=== PATIENT | female | born 1990 | race African-American/Black ===

== ENCOUNTER 2017-10-07 10:36 | Inpatient (IN) ==
[2017-10-07 11:40] LABS: Apearance,Urine CLEAR (Clear); Bilirubin,Urine Negative (Negative); Blood, Urine Moderate mg/dL (Negative); Glucose,Urine (UA) Negative (Negative); Ketones,Urine Negative (Negative); Mucus,Urine Occasional /LPF (Occasional); Nitrite,Urine Negative (Negative); Protein,Urine 100 MG/DL; RBC,Urine 100 /HPF (0-4); Squamous Epithelial Cell,Urine Occasional /HPF (0-10); Urine Color Yellow (Yellow); Urine Specific Gravity 1.018 (1.001-1.035); Urine Urobilinogen < 2.0 EU/DL (0.2-1.0); WBC,Urine 1 /HPF (0-6)
[2017-10-07] MEDS ORDERED: ONDANSETRON 4 MG/2 ML VIAL IV PRN ×2 (11:42→12:57)
[2017-10-07] MEDS ORDERED: FAMOTIDINE 20 MG/2 ML VIAL IV ONE (11:43)
[2017-10-07] MEDS ORDERED: MAGNESIUM SULF RIDER 100 ML IV ONE (11:44)
[2017-10-07] MEDS: LACTATED RINGERS 1,000 ML IV SCH ×2 (11:45→21:18)
[2017-10-07] MEDS ORDERED: CITRIC ACID/SODIUM CITRATE 30 ML UDCUP ONE (11:45)
[2017-10-07 11:59] LABS: Basophils # 0.1 10*3/uL (0.0-0.2); Basophils % 0.5 % (0.0-0.8); Eosinophils # 0.5 10*3/uL (0.0-0.87); Eosinophils % 4.7 % (0.00-10.9); Hematocrit 35.4 VOL% (35.7-47.0); Hemoglobin 11.8 GM/DL (12.0-16.0); Immature Granulocytes % 0.6 %; Immature Granulocytes Absolute 0.06 #; Lymphocytes # 3.4 10*3/uL (1.4-4.0); Lymphocytes % 34.1 % (21.3-54.2); Mean Corpuscular HGB Conc 33.3 GM/DL (32-36); Mean Corpuscular Hemoglobin 32 PG (27-34); Mean Corpuscular Volume 96.5 FL (87-102); Mean Platelet Volume 10.4 FL (9.6-12.0); Monocytes # 1.1 10*3/uL (0.11-0.8); Monocytes % 10.9 % (1.7-12.7); Neutrophils # 4.9 10*3/uL (1.4-7.4); Neutrophils % 49.2 % (38.7-73.9); Platelet Count 194 T/CUMM (130-400); Red Blood Count 3.67 MC/CUMM (3.8-5.5); Red Cell Distribution Width 13.8 % (9.3-17.3); White Blood Count 9.9 T/CUMM (4-12)
[2017-10-07] MEDS ORDERED: OXYTOCIN/LR 20 UNIT/1,000 ML BAG IV ONE ×3 (12:04→16:51)
[2017-10-07] MEDS ORDERED: SODIUM CHLORIDE 0.9% 100 ML IV ONE (12:05)
[2017-10-07 12:31] LABS: Barbiturates Screen,Urine Negative (Negative); Benzodiazepines Screen,Urine Negative (Negative); Cannabinoid Screen,Urine Negative (Negative); Opiate Screen,Urine Negative (Negative); Phencyclidine Screen,Urine Negative (Negative)
[2017-10-07 12:39] LABS: Alanine Aminotransferase 14 U/L (13-56); Albumin 2.9 G/DL (3.4-5.0); Alkaline Phosphatase 119 U/L (45-117); Aspartate Amino Transferase 18 U/L (0-37); Bilirubin,Total < 0.39 MG/DL (0.2-1.0); Blood Urea Nitrogen 9 MG/DL (7-18); Calcium 8.8 MG/DL (8.5-10.1); Glucose 71 MG/DL (74-106); Osmolality,Calculated 271.7 MOS/KG (273-304); Potassium 4.2 MMOL/L (3.5-5.1); Sodium 138 MMOL/L (136-145)
[2017-10-07] MEDS ORDERED: RHO(D) IMMUNE GLOBULIN 300 MCG SYRINGE IM ONE (12:57)
[2017-10-07] MEDS ORDERED: SIMETHICONE CHEW 80 MG TABLET PO PRN (12:57)
[2017-10-07] MEDS ORDERED: ACETAMINOPHEN 325 MG TABLET PO PRN (12:57)
[2017-10-07 13:01] LABS: Hepatitis B Surface Ag Quant 0.61 Index; Hepatitis B Surface Ag Result Negative (Negative)
[2017-10-07] MEDS ORDERED: KETOROLAC 60 MG/2 ML VIAL IM ONE (13:08)
[2017-10-07] MEDS ORDERED: KETAMINE 500 MG/10 ML VIAL ONE (13:40)
[2017-10-07] MEDS ORDERED: MIDAZOLAM 2 MG/2 ML VIAL ONE (13:40)
[2017-10-07] MEDS ORDERED: fentaNYL 100 MCG/2 ML VIAL ONE (13:40)
[2017-10-07] MEDS ORDERED: PROPOFOL 200 MG/20 ML VIAL IV ONE (13:41)
[2017-10-07] MEDS ORDERED: SUCCINYLCHOLINE 200 MG/10 ML VIAL ONE (13:41)
[2017-10-07] MEDS ORDERED: DEXAMETHASONE 10 MG/1 ML VIAL ONE (13:41)
[2017-10-07 13:44] LABS: HIV Antigen/Antibody Result Nonreactive (Nonreactive); Rubella Antibody IgG 165.3 IU/ML
[2017-10-07] MEDS: MEPERIDINE 50 MG/1 ML VIAL IV PRN ×2 (16:04→18:49)
[2017-10-07] MEDS ORDERED: SEVOFLURANE 1 UNIT/15 MINUTE INH ONE (16:26)
[2017-10-07] MEDS ORDERED: KETOROLAC 30 MG/1 ML VIAL ONE (18:46)
[2017-10-07] MEDS: KETOROLAC 30 MG/1 ML VIAL IV SCH (18:52)
[2017-10-07 20:37] LABS: Basophils % 0.2 % (0.0-0.8); Eosinophils % 0.1 % (0.00-10.9); Hematocrit 31.2 VOL% (35.7-47.0); Hemoglobin 10.8 GM/DL (12.0-16.0); Immature Granulocytes % 0.7 %; Lymphocytes # 1.6 10*3/uL (1.4-4.0); Lymphocytes % 10.4 % (21.3-54.2); Mean Corpuscular HGB Conc 34.6 GM/DL (32-36); Mean Corpuscular Hemoglobin 32 PG (27-34); Mean Corpuscular Volume 93.7 FL (87-102); Mean Platelet Volume 10.5 FL (9.6-12.0); Monocytes # 0.8 10*3/uL (0.11-0.8); Monocytes % 5.6 % (1.7-12.7); Neutrophils # 12.4 10*3/uL (1.4-7.4); Platelet Count 183 T/CUMM (130-400); Red Blood Count 3.33 MC/CUMM (3.8-5.5); Red Cell Distribution Width 13.4 % (9.3-17.3); White Blood Count 14.9 T/CUMM (4-12)
[2017-10-07] MEDS: ceFAZolin 1,000 MG in SYRINGE 1 EACH IV SCH (21:03)
[2017-10-07 21:04] LABS: Band Neutrophils 2 % (0-10); Lymphocytes 13 % (20-55); Segmented Neutrophils 83 % (50-85); Total Cells Counted 100
[2017-10-07 21:05] LABS: Macrocytosis 1+; Platelet Estimate Normal
[2017-10-07] MEDS: MAGNESIUM HYDROXIDE SUSP 30 ML UDCUP PO PRN (21:05)
[2017-10-07] MEDS: oxyCODONE/ACETAMINOPHEN 5-325 MG TABLET PO PRN (21:05)
[2017-10-08] MEDS: LACTATED RINGERS 1,000 ML IV SCH ×8 (00:17→22:50)
[2017-10-08] MEDS: KETOROLAC 30 MG/1 ML VIAL IV SCH (00:59)
[2017-10-08] MEDS: oxyCODONE/ACETAMINOPHEN 5-325 MG TABLET PO PRN ×4 (01:01→20:12)
[2017-10-08] MEDS: ceFAZolin 1,000 MG in SYRINGE 1 EACH IV SCH ×2 (04:29→13:30)
[2017-10-08] MEDS: IBUPROFEN 800 MG TABLET PO PRN ×2 (06:34→16:09)
[2017-10-08 07:15] LABS: Basophils % 0.1 % (0.0-0.8); Eosinophils % 0.1 % (0.00-10.9); Hematocrit 26.4 VOL% (35.7-47.0); Hemoglobin 9.5 GM/DL (12.0-16.0); Immature Granulocytes % 0.6 %; Immature Granulocytes Absolute 0.09 #; Lymphocytes # 1.9 10*3/uL (1.4-4.0); Mean Corpuscular Hemoglobin 33 PG (27-34); Mean Corpuscular Volume 92.3 FL (87-102); Mean Platelet Volume 10.6 FL (9.6-12.0); Monocytes # 1.7 10*3/uL (0.11-0.8); Monocytes % 11.5 % (1.7-12.7); Neutrophils # 10.9 10*3/uL (1.4-7.4); Neutrophils % 74.7 % (38.7-73.9); Platelet Count 160 T/CUMM (130-400); Red Blood Count 2.86 MC/CUMM (3.8-5.5); Red Cell Distribution Width 13.4 % (9.3-17.3); White Blood Count 14.6 T/CUMM (4-12)
[2017-10-08 07:39] LABS: Band Neutrophils 4 % (0-10); Hypochromasia 1+; Lymphocytes 11 % (20-55); Microcytosis 1+; Platelet Estimate Adequate; Segmented Neutrophils 76 % (50-85); Total Cells Counted 100
[2017-10-08] MEDS: DOCUSATE SODIUM 100 MG CAPSULE PO SCH ×2 (09:12→20:12)
[2017-10-08] MEDS: METHADONE 10 MG TABLET PO SCH (09:12)
[2017-10-08] MEDS: MAGNESIUM HYDROXIDE SUSP 30 ML UDCUP PO PRN (20:12)
[2017-10-09] MEDS: IBUPROFEN 800 MG TABLET PO PRN (00:11)
[2017-10-09] MEDS: oxyCODONE/ACETAMINOPHEN 5-325 MG TABLET PO PRN ×3 (00:12→11:17)
[2017-10-09] MEDS: LACTATED RINGERS 1,000 ML IV SCH ×2 (06:15)
[2017-10-09] MEDS: DOCUSATE SODIUM 100 MG CAPSULE PO SCH (08:59)
[2017-10-09] MEDS: MAGNESIUM HYDROXIDE SUSP 30 ML UDCUP PO PRN (08:59)
[2017-10-09] MEDS ORDERED: MULTIVITAMIN (PRENATAL) TABLET PO SCH (09:00)
[2017-10-09] MEDS: METHADONE 10 MG TABLET PO SCH (09:14)
[2017-10-09 11:23] VITALS: BP 138/88
== END 2017-10-09 15:05 | disposition home or self-care (01) | DRG 540 ==
LOC: N.LDOUT 10:36 → N.LD 10:51 → N.OB 17:01
PROVIDERS: ADMIT Obstetrics & Gynecology; ATTEND Obstetrics & Gynecology
PROC: LDCSECT (ICD-10-PCS; 2017-10-07 12:00)